=== PATIENT | female | born 1995 | race Caucasian/White ===

== ENCOUNTER 2017-02-09 16:54 | Emergency (ER) | payer MEDICAID, OTHER ==
[2017-02-09 17:04] VITALS: BP 125/89; PULSE 81
--- NOTE | 2017-02-09 17:09 | EDPHY ---
H & P Stated Complaint: Dog bite to R thigh yesterday and possibly needs rabies vaccine initatied. HPI/ROS: HPI CHIEF COMPLAINT: Dog bite right thigh, ?rabies exposure HISTORY OF PRESENT ILLNESS: This patient very pleasant 21-year-old female, no significant medical history does not take any daily medications, she got bit no right anterior thigh by a dog yesterday at her apartment complex. She does not know the dog nor does she know the owners. She is unclear if the dog is up-to- date on rabies shot or not. She is requesting rabies vaccine. She has minimal bruising and a very superficial puncture site to the right anterior thigh. No other injuries. Patient does tell me that she clean her wound copiously. No active bleeding. Past Medical History: No medical history Past Surgical History: No surgical history Social History: Denies daily use of drugs alcohol tobacco products Family History: Noncontributory ROS REVIEW OF SYSTEMS: A comprehensive 10 point review of systems is otherwise negative aside from elements mentioned in the history of present illness. Exam Constitutional triage nursing summary reviewed, vital signs reviewed, awake/ alert. Eyes normal conjunctivae and sclera, EOMI, PERRLA. HENT normal inspection, atraumatic, moist mucus membranes, no epistaxis, neck supple/ no meningismus, no raccoon eyes. Respiratory clear to auscultation bilaterally, normal breath sounds, no respiratory distress, no wheezing. Cardiovascular rate normal, regular rhythm, no murmur, no edema, distal pulses normal. Gastrointestinal soft, non-tender, no rebound, no guarding, normal bowel sounds, no distension, no pulsatile mass. Genitourinary no CVA tenderness. Musculoskeletal no midline vertebral tenderness, full range of motion, no calf swelling, no tenderness of extremities, no meningismus, good pulses, neurovascularly intact. Skin right thigh: The middle of the right thigh, shows small area of ecchymosis any superficial puncture site. Otherwise no signs of infection. Neurologic awake, alert and oriented x 3, AAOx3, moves all 4 extremities equally, motor intact, sensory intact, CN II-XII intact, normal cerebellar, normal vision, normal speech. Psychiatric normal mood/affect. Heme/Lymph/Immune no lymphadenopathy. Differential Diagnosis: Includes but is not limited to in a particular order, possible rabies exposure, dog bite wound care, dog bite exposure, need for Augmentin Medical Decision Making: Plan for this patient will touch base with Infectious Disease see if she really needs rabies vaccination and series, also place patient on Augmentin. There is no signs of infection at this time Re-evaluation: 172: I spoke with Dr. Joanie Quiroz with Infectious Disease. Given this patient dog bite was provoked, in [facility] [place], there has been no cases of rabies in [facility] in a very long time it is unlikely that there is redness transmission. 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 Even though we do not know the dog and the residue furnace operator is unlikely this patient was transmitted rabies or has rabies exposure. Dr. Quiroz did not recommend this patient gets rabies vaccination series. I did go over this with the patient. She understands and is comfortable with this. She is comfortable with Augmentin. She does understand return emergency room if she has any worsening symptoms questions or concerns. Source: Patient - Personal History LMP (Females 10-55): 1-7 Days Ago Current Tetanus Diphtheria and Acellular Pertussis (TDAP): Yes Tetanus Vaccine Date: within 10 years - Medical/Surgical History Hx Asthma: No Hx Chronic Respiratory Disease: No Hx Diabetes: No Hx Cardiac Disease: No Hx Renal Disease: No Hx Cirrhosis: No Hx Alcoholism: No Hx HIV/AIDS: No Hx Splenectomy or Spleen Trauma: No Other PMH: Oral surgery - Social History Smoking Status: Never smoked Constitutional: Initial Vital Signs Temperature (C) 36.8 C 02/09/17 17:01 Heart Rate 81 02/09/17 17:01 Respiratory Rate 16 02/09/17 17:01 Blood Pressure 125/89 H 02/09/17 17:01 O2 Sat (%) 96 02/09/17 17:01 O2 Delivery Mode Room Air Allergies/Adverse Reactions: macadamia nut oil Allergy (Severe, Verified 02/09/17 17:05) tongue swelling Home Medications: Medication Instructions Recorded [employer] 02/09/17 Departure - Departure Disposition: Home, Routine, Self-Care Clinical Impression: Dog bite Qualifiers: Encounter type: initial encounter Qualified Code(s): W54.0XXA - Bitten by dog, initial encounter Condition: Good Instructions: Animal Bite (ED) Additional Instructions: 1. Return emergency room if you have any worsening symptoms questions concerns. Watch for further signs of infection this includes redness, drainage, pus. Take her Augmentin with yogurt and food. Not on an empty stomach Augmentin can cause diarrhea. Referrals: NONE *PRIMARY CARE P,. [Primary Care Provider] - As per Instructions
[2017-02-09] MEDS ORDERED: BACITRACIN OINTMENT 1 PACKET TP ONE (17:33)
[2017-02-09 19:25] VITALS: RESP 20; TEMP 98.1; O2SAT 95
== END 2017-02-09 17:55 | disposition home or self-care (01) ==
LOC: CED 16:54
DX: S71.151A Open bite, right thigh, initial encounter (principal); W54.0XXA Bitten by dog, initial encounter